=== PATIENT | female | born 2000 | race Two or more races ===

== ENCOUNTER 2021-01-05 16:58 | Emergency (ER) | payer MEDICAID ==
--- NOTE | 2021-01-05 18:31 | NUR ---
CALLED IN ED WAITING ROOM. NO RESPONSE.
== END 2021-01-05 18:32 | disposition left against medical advice (07) ==
LOC: ER 17:07
DX: Z53.21 Procedure and treatment not carried out due to patient leaving prior to being seen by health care provider (principal); M79.603 Pain in arm, unspecified